=== PATIENT | female | born 1965 | race Caucasian/White ===

== ENCOUNTER → 2017-05-14 | Outpatient (CLI) | payer BC | LOC: MC.RAD 08:20 | DX: Z12.31 Encounter for screening mammogram for malignant neoplasm of breast (principal) ==

== ENCOUNTER → 2019-03-17 | Outpatient (CLI) | payer BC | LOC: MC.RAD 14:26 | DX: Z12.31 Encounter for screening mammogram for malignant neoplasm of breast (principal) ==

== ENCOUNTER → 2019-12-28 | Outpatient (CLI) | payer BC | LOC: COL.RAD 09:43 | DX: E04.2 Nontoxic multinodular goiter (principal) ==

== ENCOUNTER → 2020-01-12 | Outpatient (CLI) | payer BC ==
[~2020-01-12] VITALS: Ht 175.3 cm; Wt 75.4 kg
[~2020-01-12] MED LIST: MAGNESIUM250 M1 PO; UNISOM SLEEPGEL50 MG PO
[2020-01-12 09:22] VITALS: BP 118/77; PULSE 61
[2020-01-12 10:05] VITALS: BP 129/79; PULSE 71
== END ==
LOC: COL.RAD 09:00
DX: E04.1 Nontoxic single thyroid nodule (principal)

== ENCOUNTER → 2022-05-10 | Outpatient (CLI) | payer BC | LOC: MC.RAD 06:58 | DX: Z12.31 Encounter for screening mammogram for malignant neoplasm of breast (principal) ==